=== PATIENT | female | born 1950 | race Caucasian/White ===

== ENCOUNTER → 2018-01-09 | Outpatient (CLI) | payer MEDICARE, OTHER ==
--- NOTE | 2018-01-09 09:24 | Diagnostic Imaging Report ---
PROCEDURE: CT CHEST WITHOUT CONTRAST CT scan of the chest WITHOUT intravenous contrast, using standard protocol. TECHNIQUE: The chest was scanned utilizing a multidetector helical scanner from the apex to the level of the adrenal glands. No IV contrast was administered per protocol. Coronal and sagittal multiplanar reformations were obtained. COMPARISON: Chest CT 07/11/16 (report available but images are not available for review due to technical issues). INDICATIONS: LUNG NODULE FINDINGS: Lines/tubes: None. Lungs and Airways: The central airways are patent. Mild bronchiectasis in the lower lobes. No evidence of consolidation. Bilateral pulmonary nodules measuring 2-4 mm are noted. There are two solid, non-calcified pulmonary nodules measuring up to 5 mm in the right lower lobe. Pleura: The pleural spaces are clear. Heart and mediastinum: The thyroid gland is normal. No significant mediastinal, hilar or axillary lymphadenopathy is seen. Moderate atherosclerotic coronary and aortic calcifications. Soft tissues: Normal. Abdomen: Limited views of the upper abdomen show no abnormality within the visualized liver, spleen or adrenal glands. Status post cholecystectomy. Colonic diverticulosis is noted. Bones: No acute bony findings. IMPRESSION: Bilateral solid pulmonary nodules measuring up to 5 mm in the right lower lobe. Due to technical issues, images from prior CT are not available for comparison. The prior report noted the largest nodule on that study was 5 mm as well. Given smoking history and inability to compare to the prior study, an additional 12 month follow-up chest CT is suggested. Dictated by: EVANS DUEÑAS M.D. on 01/09/2018 at 9:32 Electronically approved by: EVANS DUEÑAS M.D. on 01/09/2018 at 9:32
== END ==
LOC: CT 07:50
PROVIDERS: ATTEND Family Medicine
DX: R93.89 Abnormal findings on diagnostic imaging of other specified body structures (principal)
CPT/HCPCS: 71250